=== PATIENT | female | born 1955 | race Caucasian/White ===

== ENCOUNTER 2022-07-17 23:35 | Emergency (ER) | payer SELFPAY ==
[~2022-07-17] VITALS: Ht 165.1 cm; Wt 75.0 kg
[2022-07-17 23:51] VITALS: BP 142/76
[2022-07-17] MEDS ORDERED: KETOROLAC 30MG/ML VIAL IM STA (23:58)
[2022-07-17] MEDS ORDERED: ONDANSETRON 4MG ODT PO STA (23:58)
== END 2022-07-18 01:30 | disposition left against medical advice (07) ==
LOC: ER 23:35
DX: R10.84 Generalized abdominal pain (principal); Z87.19 Personal history of other diseases of the digestive system
CPT/HCPCS: 99283